=== PATIENT | female | born 1955 | race Caucasian/White ===

== ENCOUNTER 2017-01-16 20:51 | Emergency (ER) | payer OTHER ==
--- NOTE | 2017-01-16 22:22 | ED ---
Izabel Tyler Alok, scribed for Colby Yanes MD on 01/16/17 at 2213 . Head Injury - HPI Summary HPI Summary: 61 y/o female presents to the ED with a migraine beginning at noon today after experiencing a fall with impact to the head 5 days ago. Pt reportedly tripped while walking 5 days ago landing on the left side of her head and suffering bruising on her chin, arms, and knees. Pt reported feeling no HAs in the days after until 1200 today where since she has been feeling left-sided head pain with visual disturbances described as "flashes and floaters". Pt last took ibuprofen at 0800 today and states that her VILLEGAS has been improving throughout the day though is still present. Pt denies any use of blood thinners. No other pertinent medical information at this time. - History Of Current Complaint Chief Complaint: EDHeadInjury Stated Complaint: FALL/VISUAL DISTURBANCE Time Seen by Provider: 01/16/17 22:02 Hx Obtained From: Patient Mechanism Of Injury: Fall From A Standing Position Onset/Duration: Started Days Ago, Traumatic, Still Present Onset of Pain: Immediate Severity Currently: Moderate Severity Initially: Moderate Pain Intensity: 2 Pain Scale Used: 0-10 Numeric Location of Head Injury: Temporal - Left Character: Throbbing Alleviating Factor(s): OTC Medications` - Ibuprofen Associated Signs And Symptoms: Bruising - chin, arms, legs, Headache - Left side temporal, Visual Changes - "flashes and floaters" - Allergies/Home Medications Allergies/Adverse Reactions: Allergies Allergy/AdvReac Type Severity Reaction Status Date / Time Iodine Allergy Anaphylatic Verified 01/16/17 21:30 Shock PMH/Surg Hx/FS Hx/Imm Hx Infectious Disease History: No Infectious Disease History: Denies: Traveled Outside the [place] in Last 30 Days - Family History Known Family History: Negative: Cardiac Disease, Diabetes - Social History Occupation: Employed Full-time Review of Systems Negative: Fever Eyes: Other - Visual disturbances "flashes and floaters" Positive: Bruising - chin, arms, knees Positive: Headache All Other Systems Reviewed And Are Negative: Yes Physical Exam Triage Information Reviewed: Yes Vital Signs On Initial Exam: Initial Vitals Temp Pulse Resp BP Pulse Ox 97.8 F 74 14 151/85 100 01/16/17 20:57 01/16/17 20:57 01/16/17 20:57 01/16/17 20:57 01/16/17 20:57 Vital Signs Reviewed: Yes Appearance: Positive: Well-Appearing, No Pain Distress - anxious Skin: Positive: Warm Head/Face: Positive: Normal Head/Face Inspection Eyes: Positive: EOMI, OAMRI ENT: Positive: Hearing grossly normal Neck: Positive: Supple Respiratory/Lung Sounds: Positive: Clear to Auscultation, Breath Sounds Present Cardiovascular: Positive: RRR Abdomen Description: Positive: Nontender, Soft Neurological: Positive: Sensory/Motor Intact, Alert, Oriented to Person Place, Time, CN Intact II-III, Normal Gait Psychiatric: Positive: Affect/Mood Appropriate - Vicki Coma Scale Coma Scale Total: 15 Diagnostics - Vital Signs Vital Signs Temp Pulse Resp BP Pulse Ox 01/16/17 22:04 98.6 F 71 17 137/79 99 01/16/17 22:03 75 99 01/16/17 22:01 137/79 01/16/17 21:26 97.5 F 68 20 137/75 100 01/16/17 20:57 97.8 F 74 14 151/85 100 - Laboratory Lab Statement: Any lab studies that have been ordered have been reviewed, and results considered in the medical decision making process. - CT Brain CT CT Interpretation: Positive (See Comments) - IMPRESSION: NO ACUTE INTRACRANIAL PATHOLOGY CT Interpretation Completed By: Radiologist Re-Evaluation - Re-Evaluation First Eval Re-Evaluation Time: 22:47 Change: Improved Head Injury Course/Dx - Diagnoses Provider Diagnoses: Visual disturbance Discharge - Discharge Plan Condition: Stable Disposition: HOME Patient Education Materials: Head Injury (ED) Referrals: No Primary Care Phys,NOPCP [Primary Care Provider] - The documentation as recorded by the Izabel platt Alok accurately reflects the service I personally performed and the decisions made by , Colby Yanes MD.
--- NOTE | 2017-01-16 22:43 | RAD ---
HISTORY: Head injury, visual disturbance COMPARISONS: None TECHNIQUE: Multiple contiguous axial CT scans were obtained of the head without intravenous contrast. FINDINGS: HEMORRHAGE/INFARCT: There is no hemorrhage or acute infarct. MASSES/SHIFT: There is no mass or shift. EXTRA-AXIAL SPACES: There are no extra-axial fluid collections. SULCI AND VENTRICLES: The sulci and ventricles are normal in size and position for the patient's stated age. CEREBRUM: There are no focal parenchymal abnormalities. BRAINSTEM: There are no focal parenchymal abnormalities. CEREBELLUM: There are no focal parenchymal abnormalities. VESSELS: The vessels are grossly normal. PARANASAL SINUSES: The paranasal sinuses are clear. ORBITS: The orbits are unremarkable. BONES AND SOFT TISSUE: No bone or soft tissue abnormalities are noted. OTHER: None IMPRESSION: NO ACUTE INTRACRANIAL PATHOLOGY.
[2017-01-16 23:49] VITALS: BP 129/90
== END 2017-01-16 23:47 | disposition home or self-care (01) ==
LOC: ED 20:51
DX: H53.9 Unspecified visual disturbance (principal); R51 Headache
CPT/HCPCS: 70450; 99282

== ENCOUNTER 2019-09-07 14:20 | Emergency (ER) | payer MEDICARE, OTHER ==
--- NOTE | 2019-09-07 15:12 | ED ---
Dizziness - HPI Summary HPI Summary: 64 year old female presents to the ED with a chief complaint of dizziness starting 2 days ago. Patient reports feeling lower back pain 3 days ago along with shooting pains down her left leg. 2 days ago she stood up and she felt extremely lightheaded, with a feeling of "cotton in front of her eyes". Dizziness went away after a few minutes. Yesterday a headache started, similar to her chronic migraines except that she experienced a 1 second flash of paresthesia on her face. This morning she had another bout of dizziness when she stood up; it was alleviated when she sat down. Currently she feels headache , arm pain, numbness and paresthesia in her left leg. She has been highly stressed for the last few days, and reports resting tremors and feeling jittery. She had flu-like symptoms a week ago that has resolved. Patient has a history of back pain starting decades ago that has resolved in recent years but has exacerbated in the last week. History of PTSD. 2 years ago she fell and suffered vitreous detachment. - History Of Current Complaint Chief Complaint: EDGeneral Stated Complaint: GENERAL ILLNESS Time Seen by Provider: 09/07/19 14:45 Hx Obtained From: Patient Onset/Duration: Still Present Timing: Minutes Severity Initially: Moderate Severity Currently: Moderate Character: Lightheaded Aggravating Factor(s): Supine To Erect Alleviating Factor(s): Lying Down - Allergies/Home Medications Allergies/Adverse Reactions: Allergies Allergy/AdvReac Type Severity Reaction Status Date / Time Iodine and Iodide Containing Allergy Anaphylatic Verified 09/07/19 14:28 Produc Shock Home Medications: Home Medications NK [No Home Medications Reported] 09/07/19 [History Confirmed 09/07/19] PMH/Surg Hx/FS Hx/Imm Hx Endocrine/Hematology History: Denies: Hx Anticoagulant Therapy Infectious Disease History: Yes Infectious Disease History: Denies: Traveled Outside the [place] in Last 30 Days - Family History Known Family History: Negative: Cardiac Disease, Diabetes - Social History Alcohol Use: None Substance Use Type: Reports: None Smoking Status (MU): Never Smoked Tobacco Review of Systems Negative: Fever Positive: Blurred Vision - Feeling like there's "cotton over her eyes." Positive: Myalgia - Back pain, LLE and LUE pain. Neurological: Other - tremors, dizziness Positive: Headache Positive: Anxious All Other Systems Reviewed And Are Negative: Yes Physical Exam - Summary Physical Exam Summary: Appearance: The patient is well-nourished in no acute distress and in no acute pain. Skin: The skin is warm and dry, and skin color reflects adequate perfusion. HEENT: The head is normocephalic and atraumatic. The pupils are equal and reactive. The conjunctivae are clear and without drainage. Nares are patent and without drainage. Mouth reveals moist mucous membranes, and the throat is without erythema and exudate. The external ears are intact. The ear canals are patent and without drainage. The tympanic membranes are intact. Neck: The neck is supple with full range of motion and non-tender. There are no carotid bruits. There is no neck vein distension. Respiratory: Chest is non-tender. Lungs are clear to auscultation and breath sounds are symmetrical and equal. Cardiovascular: Heart is regular rate and rhythm. There is no murmur or rub auscultated. There is no peripheral edema and pulses are symmetrical and equal. Abdomen: The abdomen is soft and non-tender. There are normal bowel sounds heard in all four quadrants and there is no organomegaly palpated. Musculoskeletal: There is no back tenderness noted. Extremities are non-tender with full range of motion. There is good capillary refill. There is no peripheral edema or calf tenderness elicited. Neurological: Patient is alert and oriented to person, place and time. The patient has symmetrical motor strength in all four extremities. Cranial nerves are grossly intact. Deep tendon reflexes are symmetrical and equal in all four extremities. Resting tremor. Psychiatric: The patient has an appropriate affect and does not exhibit any anxiety or depression. Triage Information Reviewed: Yes Vital Signs On Initial Exam: Initial Vitals Temp Pulse Resp BP Pulse Ox 99.0 F 80 15 177/96 99 09/07/19 14:24 09/07/19 14:24 09/07/19 14:24 09/07/19 14:24 09/07/19 14:24 Vital Signs Reviewed: Yes Procedures - Sedation Patient Received Moderate/Deep Sedation with Procedure: No Diagnostics - Vital Signs Vital Signs Temp Pulse Resp BP Pulse Ox 09/07/19 14:24 99.0 F 80 15 177/96 99 - Laboratory Result Diagrams: 09/07/19 15:41 09/07/19 15:41 Lab Statement: Any lab studies that have been ordered have been reviewed, and results considered in the medical decision making process. - CT Brain CT CT Interpretation Completed By: Radiologist Summary of CT Findings: Impression: This is a normal brain CT scan. An ED physician has reviewed this report. - EKG 1523 Cardiac Rate: NL - 73 bpm EKG Rhythm: Sinus Rhythm Summary of EKG Findings: Sinus rhythm at 73 bpm, normal ST, no ectopy, no STEMI. Left axis deviation. Dr. Wick has interpreted and reviewed this EKG. Dizzy Course/Dx - Course Course Of Treatment: Ms. Ellison has had 3 episodes of a diffuse area of symptomatology. I'm not sure what it represents but my biggest concern is near- syncope. CVA seems much less likely. She was nontoxic in appearance with stable vital signs. She was kept on a monitor here while labs and CT were obtained and unremarkable. I don't think anything dangerous is happening but I recommended close follow-up with her PCP as she may need further workup. - Diagnoses Provider Diagnoses: Near syncope Discharge ED - Sign-Out/Discharge Documenting (check all that apply): Patient Departure - discharge - Discharge Plan Condition: Stable Disposition: HOME Patient Education Materials: Near Syncope (ED) Referrals: [facility] [Outside] Additional Instructions: Follow up with [facility] within a week. Return to the Emergency Department if you experience new or worsened symptoms. - Billing Disposition and Condition Condition: STABLE Disposition: Home - Attestation Statements Document Initiated by Petros: Yes Documenting Scribe: Real Bryson Provider For Whom Petros is Documenting (Include Credential): Gibran Wick MD Scribe Attestation: I, Real Bryson, scribed for Gibran Wick MD on 09/07/19 at 2030. Scribe Documentation Reviewed: Yes Provider Attestation: The documentation as recorded by the Real platt accurately reflects the service I personally performed and the decisions made by me, Gibran Wick MD Status of Scribe Document: Viewed
[2019-09-07 15:37] LABS: Urine Appearance Clear; Urine Color Yellow
[2019-09-07 15:38] LABS: Urine Bilirubin Negative (Negative); Urine Blood Negative (Negative); Urine Ketones Negative (Negative); Urine Nitrite Negative (Negative); Urine Protein Negative (Negative); Urine Specific Gravity 1.025 (1.010-1.030); Urine Urobilinogen Negative (Negative)
[2019-09-07 15:39] LABS: Urine Glucose Negative (Negative)
[2019-09-07 15:41] LABS: Urine Bacteria Absent (Absent); Urine Red Blood Cell 1+(3-5/hpf) (Absent); Urine Squamous Epithelial Cell Present (Absent); Urine White Blood Cell Trace(0-5/hpf) (Absent)
[2019-09-07 15:52] LABS: ABS Lymphocytes 1.4 10^3/ul (1.0-4.8); ABS Monocytes 0.4 10^3/ul (0-0.8); ABS Neutrophils 4.8 10^3/ul (1.5-7.7); Eosinophil % 0.3 %; Hematocrit 39 % (35-47); Hemoglobin 13.4 g/dL (12.0-16.0); Mean Corpuscular HGB Conc 34 g/dL (31-36); Mean Corpuscular Hemoglobin 34 pg (27-31); Mean Corpuscular Volume 98 fL (80-97); Mean Platelet Volume 7.5 fL (7.4-10.4); Nucleated Red Blood Cells % 0.1; Platelet Count 248 10^3/uL (150-450); Red Blood Count 3.97 10^6 /uL (3.70-4.87); Red Cell Distribution Width 13 % (10-15); White Blood Count 6.6 10^3/uL (3.5-10.8)
[2019-09-07 16:04] LABS: INR 0.94 (0.82-1.09)
[2019-09-07 16:09] LABS: Albumin 4.2 g/dL (3.2-5.2); Albumin/Globulin Ratio 1.7 (1-3); BUN/Creatinine Ratio 33.9 (8-20); Calcium 9.3 mg/dL (8.6-10.3); EGFR African American 116.9 (>60); EGFR Non-African American 96.6 (>60); Globulin 2.5 g/dL (2-4); Potassium 4.1 mmol/L (3.5-5.0); Total Bilirubin 0.4 mg/dL (0.2-1.0); Total Protein 6.7 g/dL (6.4-8.9)
[2019-09-07 16:30] LABS: TSH (Thyroid Stimulating Horm) 0.99 mcIU/mL (0.34-5.60)
[2019-09-07 18:16] VITALS: BP 120/68
== END 2019-09-07 18:14 | disposition home or self-care (01) ==
LOC: ED 14:20
DX: R55 Syncope and collapse (principal); R25.1 Tremor, unspecified; Z91.041 Radiographic dye allergy status
CPT/HCPCS: 36415; 70450; 80053; 81003; 83605; 83735; 84443; 84484; 85025; 85379; 85610; 87086; 93005; 99283